=== PATIENT | male | born 1965 | race Caucasian/White ===

== ENCOUNTER → 2017-04-23 | Outpatient (CLI) | payer OTHER ==
[~2017-04-23] VITALS: Ht 177.8 cm; Wt 95.3 kg
[~2017-04-23] MED LIST: ALEVE220 MG PO; DESYREL100 MG PO; FLONASE ALLERG9.9 ML BOTH NARES; HYDROCHLOROTHIA25 MG PO; LIPITOR10 MG PO; MEN'S ONE DAIL1 EACH PO
== END | disposition home or self-care (01) ==
LOC: AMB 10:59
PROC: 0DBK8ZX Excision of Ascending Colon, Via Natural or Artificial Opening Endoscopic, Diagnostic (ICD-10-PCS; principal; 2017-04-23)
DX: Z12.11 Encounter for screening for malignant neoplasm of colon (principal); D12.2 Benign neoplasm of ascending colon; K57.30 Diverticulosis of large intestine without perforation or abscess without bleeding; K64.8 Other hemorrhoids; Z87.891 Personal history of nicotine dependence; N40.0 Benign prostatic hyperplasia without lower urinary tract symptoms; I10 Essential (primary) hypertension; E78.00 Pure hypercholesterolemia, unspecified; E78.1 Pure hyperglyceridemia; E66.9 Obesity, unspecified; Z68.31 Body mass index [BMI] 31.0-31.9, adult; Z82.0 Family history of epilepsy and other diseases of the nervous system; Z80.41 Family history of malignant neoplasm of ovary; Z82.49 Family history of ischemic heart disease and other diseases of the circulatory system
CPT/HCPCS: 88305; 93005

== ENCOUNTER 2017-04-24 09:02 | Emergency (ER) | payer OTHER ==
[~2017-04-24] VITALS: Ht 180.3 cm; Wt 96.8 kg
[2017-04-24 09:43] LABS: HEMATOCRIT 37.4 % (38.0-50.0); HEMOGLOBIN 13.3 G/DL (12.5-16.6); MCH 28.9 PG (29.0-34.0); MCHC 35.6 G/DL (30.0-36.0); MCV 81.3 FL (86-99); PLATELET COUNT 276 K/uL (156-360); RBC DIS.WIDTH-CV 12.3 % (11.8-14.6); RBC DIS.WIDTH-SD 36.5 % (39-53); WHITE BLOOD COUNT 8.3 K/uL (4.1-10.2)
[2017-04-24 09:55] LABS: ALBUMIN 3.9 g/dL (3.2-4.8); CHLORIDE 106 mEq/L (99-109); POTASSIUM 3.9 mEq/L (3.7-5.4); SODIUM 139 mEq/L (136-147)
[2017-04-24 09:57] LABS: GLUCOSE 157 mg/dL (70-99); TOTAL PROTEIN 6.5 g/dL (6.4-8.3)
[2017-04-24 09:59] LABS: TOTAL BILIRUBIN 0.4 mg/dL (0.0-1.0)
[2017-04-24 10:01] LABS: ALKALINE PHOSPHATASE 81 IU/L (3-129); CREATININE 1.2 mg/dL (0.6-1.3); GFR ESTIMATE (CALCULATED) > 59 mL/min/ (58.99-99999)
[2017-04-24 10:02] LABS: UREA NITROGEN (BUN) 18 mg/dL (9-23)
[2017-04-24 10:03] LABS: AST (GOT) 19 IU/L (2-34)
[2017-04-24 10:04] LABS: ALT (GPT) 41 IU/L (3-49)
[2017-04-24 11:14] VITALS: BP 120/82
== END 2017-04-24 11:15 | disposition home or self-care (01) ==
LOC: EME 09:02
PROVIDERS: Nurse Practitioner Family
DX: K62.5 Hemorrhage of anus and rectum (principal); Z98.890 Other specified postprocedural states; K57.30 Diverticulosis of large intestine without perforation or abscess without bleeding; I10 Essential (primary) hypertension; K21.9 Gastro-esophageal reflux disease without esophagitis; F41.9 Anxiety disorder, unspecified; Z86.010 Personal history of colon polyps; Z87.891 Personal history of nicotine dependence
CPT/HCPCS: 74177; 80053; 85027; 99281; 99283; J7030